=== PATIENT | female | born 1990 | race Caucasian/White ===

== ENCOUNTER 2016-08-25 01:37 | Emergency (ER) | payer MEDICAID ==
--- NOTE | 2016-08-25 01:58 | Emergency Department Record ---
History of Present Illness - General Chief Complaint: Fever Stated Complaint: FEVER CONGESTION Time Seen by Provider: 08/25/16 01:54 Source: Patient, Family Mode of Arrival: Ambulatory Limitations: No limitations - History of Present Illness Initial Comments: 26 yo female presents with cough, sore throat, and fever. She is due in October. She is feeling feeling good movement. No fluid leakage. She has six children that have had similar cough, fever, sore throats. Her left ear is painful. No drainage. Non productive cough. No rash. No edema. She had her tonsils removed at age 19. The patient has known elevated blood pressure and is on medication. OB is through [facility]. MD Complaint: Fever, Other (cough and sore throat) Onset/Timin -: Days(s) Context: Sick contacts Associated Symptoms: Cough, Nasal congestion, Sore throat Treatments Prior to Arrival: None - Related Data Home Medications Medication Instructions Recorded Confirmed Last Taken Labetalol HCl 200 mg PO BID 08/25/16 08/25/16 08/24/16 Ondansetron [Ondansetron Odt] 8 mg PO ASDIR 08/25/16 08/25/16 08/24/16 Pnv with Ca,No.72/Iron/FA 1 tab PO DAILY 08/25/16 08/25/16 08/24/16 [ Plus Tablet] Previous Rx's Medication Instructions Recorded Amoxicillin [Amoxil] 500 mg PO TID #30 tab 08/25/16 Allergies Allergy/AdvReac Type Severity Reaction Status Date / Time No Known Drug Allergies Allergy Verified 08/25/16 01:47 Travel Screening - Travel/Exposure Within Last 30 Days Have you traveled within the last 30 days?: No - Travel/Exposure Within Last Year Have you traveled outside the [place] in the last year?: No - Additonal Travel Details Have you been exposed to anyone with a communicable illness?: No - Travel Symptoms Symptom Screening: None Review of Systems Constitutional: Reports: Fever. Denies: Chills, Weakness Eyes: Denies: Eye discharge, Eye pain, Photophobia ENT: Reports: Congestion, Ear pain, Throat pain Respiratory: Reports: Cough. Denies: Hemoptysis, Stridor, Wheezes Cardiovascular: Denies: Chest pain, Palpitations, Syncope Endocrine: Denies: Fatigue Gastrointestinal: Denies: Abdominal pain, Diarrhea, Nausea, Vomiting Genitourinary: Denies: Dysuria, Urgency Musculoskeletal: Denies: Arthralgia, Back pain, Myalgia Skin: Denies: Bruising, Change in color, Rash Neurological: Denies: Confusion, Headache Psychiatric: Denies: Anxiety Hematological/Lymphatic: Denies: Blood Clots, Easy bleeding, Easy bruising, Swollen glands Past Medical History - SOCIAL HISTORY Smoking Status: Never smoker Alcohol Use: None Drug Use: None - RESPIRATORY Hx Respiratory Disorders: No - CARDIOVASCULAR Hx Cardio Disorders: Yes Hx Hypertension: Yes - NEURO Hx Neuro Disorders: No - GI Hx GI Disorders: No - Hx Genitourinary Disorders: No - ENDOCRINE Hx Endocrine Disorders: No - MUSCULOSKELETAL Hx Musculoskeletal Disorders: No - PSYCH Hx Psych Problems: No - HEMATOLOGY/ONCOLOGY Hx Hematology/Oncology Disorders: No Family Medical History Any Significant Family History?: No Physical Exam - General General Appearance: Alert, Oriented x3, Cooperative, No acute distress Limitations: No limitations - Head Head exam: Normal inspection - Eye Eye exam: Normal appearance. negative: Conjunctival injection, Periorbital swelling, Scleral icterus - ENT ENT exam: Mucous membranes moist, Normal orophraynx (s/p T and A). negative: Mucous membranes dry, TM's normal bilaterally (Left TM with retraction and erythema, no perf or pus, right is normal) Ear exam: Normal external inspection. negative: External canal tenderness Nasal Exam: Discharge Mouth exam: Normal external inspection, Tongue normal. negative: Drooling, Muffled voice Teeth exam: Normal inspection. negative: Dental caries Throat exam: Normal inspection. negative: Tonsillar erythema, Tonsillomegaly, Tonsillar exudate, R peritonsillar mass, L peritonsillar mass - Neck Neck exam: Normal inspection, Full ROM. negative: Lymphadenopathy, Tenderness - Respiratory Respiratory exam: Normal lung sounds bilaterally. negative: Respiratory distress, Rhonchi, Stridor, Wheezes - Cardiovascular Cardiovascular Exam: Regular rate, Normal rhythm, Normal heart sounds Peripheral Pulses: 2+: Radial (R), Radial (L) - GI/Abdominal GI/Abdominal exam: Soft. negative: Tenderness - Rectal Rectal exam: Deferred - exam: Deferred - Extremities Extremities exam: Normal inspection, Full ROM, Normal capillary refill. negative: Pedal edema, Tenderness - Back Back exam: Reports: Normal inspection, Full ROM. Denies: Muscle spasm, Rash noted, Tenderness - Neurological Neurological exam: Alert, Normal gait, Oriented X3. negative: Altered - Psychiatric Psychiatric exam: Normal affect, Normal mood. negative: Agitated, Anxious - Skin Skin exam: Dry, Intact, Normal color, Warm. negative: Erythema Course Vital Signs 08/25/16 01:46 Temperature 98.1 F Pulse Rate 102 H Respiratory 18 Rate Blood Pressure 152/95 Pulse Ox 96 - Reevaluation(s) Reevaluation #1: BP elevated. UA ordered. 08/25/16 01:57 08/25/16 02:18 Reevaluation #2: Influenza is negative Trace protein in the UA 08/25/16 02:21 Reevaluation #3: The strep and influenza are negative The patient reports tonights blood pressure is the same and typical for her at her OB appointments. Her doctor has been monitoring her BP closely and her BP medications. She had HTN of during all her prior pregnancies. She was instructed to call her OB tomorrow to discuss her BP and her medication. 08/25/16 02:27 Disposition Disposition: Discharge Clinical Impression: Otitis media Qualifiers: Otitis media type: unspecified Laterality: left Chronicity: unspecified Qualified Code(s): H66.92 - Otitis media, unspecified, left ear Disposition: Home, Self-Care Condition: (1) Good Instructions: Otitis Media (ED) Additional Instructions: Call your OB tomorrow to discuss your blood pressure and schedule a recheck tomorrow Amoxicillin 3 times daily for your left ear infection Return if worse or any new concerns Prescriptions: Amoxicillin [Amoxil] 500 mg PO TID #30 tab Forms: Patient Portal Access Time of Disposition: 02:29
[2016-08-25 02:15] LABS: URINE APPEARANCE CLEAR; URINE BILIRUBIN NEGATIVE (NEGATIVE); URINE BLOOD SMALL (NEGATIVE); URINE COLOR YELLOW; URINE GLUCOSE (UA) NEGATIVE (NEGATIVE); URINE KETONE NEGATIVE (NEGATIVE); URINE LEUKOCYTE ESTERASE SMALL (NEGATIVE); URINE NITRITE NEGATIVE (NEGATIVE); URINE PROTEIN TRACE (NEGATIVE); URINE UROBILINOGEN 0.2 E.U./dL (0.20 - 1.00)
[2016-08-25 02:20] LABS: STREP A SCREEN NEGATIVE (NEGATIVE)
[2016-08-25 02:25] LABS: URINE BACTERIA FEW; URINE MUCUS LIGHT; URINE RBC 0 - 2 (NONE SEEN)
[2016-08-25 02:26] LABS: INFLUENZA A NEGATIVE (NEGATIVE); INFLUENZA B NEGATIVE (NEGATIVE)
[2016-08-25] MEDS ORDERED: AMOXICILLIN 500 MG TABLET PO ONE (02:29)
== END 2016-08-25 03:01 | disposition home or self-care (01) ==
LOC: ER 01:37
DX: H66.92 Otitis media, unspecified, left ear (principal); I10 Essential (primary) hypertension; Z33.1 Pregnant state, incidental
CPT/HCPCS: 81001; 87400; 87880; 99283

== ENCOUNTER 2016-12-26 03:59 | Emergency (ER) | payer MEDICAID ==
[2016-12-26] MEDS ORDERED: DEXAMETHASONE 4 MG/ML 1ML VIAL PO ONE (04:06)
[2016-12-26] MEDS ORDERED: AMOXICILLIN 500MG CAPSULE PO ONE (04:06)
--- NOTE | 2016-12-26 04:12 | Emergency Department Record ---
History of Present Illness - General Chief complaint: ENT Stated complaint: STREP THROAT Time Seen by Provider: 12/26/16 04:05 Source: Patient Mode of Arrival: Ambulatory Limitations: No limitations - History of Present Illness Initial comments: 26 yo female presents with sore throat. She has eight children five of which have tested postive for strep throat. She has developed a sore throat and pain with swallowing. No fevers. No changes in voice. She has had her tonsils removed. She did notice some swollen glands. No NVD. No rash. MD complaint: Sore throat -: Days(s) (2) Location: Throat Quality: Aching Consistency: Constant Improves with: None Worsens with: Eating, Swallowing Associated Symptoms: Sore throat - Related Data Home Medications Medication Instructions Recorded Confirmed Last Taken Labetalol HCl 200 mg PO BID 08/25/16 12/26/16 08/24/16 Pnv,Calcium 72/Iron/Folic Acid 1 tab PO DAILY 08/25/16 12/26/16 08/24/16 [ Plus Tablet] Previous Rx's Medication Instructions Recorded Amoxicillin 500 mg PO TID #30 capsule 12/26/16 Allergies Allergy/AdvReac Type Severity Reaction Status Date / Time No Known Drug Allergies Allergy Verified 08/25/16 01:47 Review of Systems Constitutional: Denies: Chills, Fever, Malaise, Weakness Eyes: Denies: Eye discharge ENT: Reports: Throat pain. Denies: Congestion Respiratory: Denies: Cough, Dyspnea, Hemoptysis, Stridor, Wheezes Cardiovascular: Denies: Chest pain, Palpitations, Syncope Endocrine: Denies: Fatigue Gastrointestinal: Denies: Abdominal pain, Diarrhea, Nausea, Vomiting Genitourinary: Denies: Dysuria, Urgency Musculoskeletal: Denies: Arthralgia, Back pain, Myalgia, Neck pain Skin: Denies: Bruising, Change in color, Rash Neurological: Denies: Headache Psychiatric: Denies: Anxiety Hematological/Lymphatic: Denies: Blood Clots, Easy bleeding, Easy bruising, Swollen glands Past Medical History - SOCIAL HISTORY Smoking Status: Never smoker Drug Use: None - RESPIRATORY Hx Respiratory Disorders: No - CARDIOVASCULAR Hx Cardio Disorders: Yes Hx Hypertension: Yes - NEURO Hx Neuro Disorders: No - GI Hx GI Disorders: No - Hx Genitourinary Disorders: No - ENDOCRINE Hx Endocrine Disorders: No - MUSCULOSKELETAL Hx Musculoskeletal Disorders: No - PSYCH Hx Psych Problems: No - HEMATOLOGY/ONCOLOGY Hx Hematology/Oncology Disorders: No Physical Exam - General General Appearance: Alert, Oriented x3, Cooperative, No acute distress Limitations: No limitations - Head Head exam: Normal inspection - Eye Eye exam: Normal appearance, PERRL. negative: Conjunctival injection, Periorbital swelling - ENT ENT exam: Mucous membranes moist, Normal external ear exam, TM's normal bilaterally. negative: Mucous membranes dry, Normal orophraynx Ear exam: Normal external inspection. negative: External canal tenderness Nasal Exam: Normal inspection. negative: Discharge, Sinus tenderness Mouth exam: Normal external inspection, Tongue normal Teeth exam: Normal inspection. negative: Dental caries Throat exam: Tonsillar erythema. negative: Tonsillomegaly, Tonsillar exudate, R peritonsillar mass, L peritonsillar mass - Neck Neck exam: Normal inspection, Full ROM, Lymphadenopathy (few small anterior LN, no posterior). negative: Tenderness - Respiratory Respiratory exam: Normal lung sounds bilaterally. negative: Respiratory distress, Rhonchi, Stridor, Wheezes - Cardiovascular Cardiovascular Exam: Regular rate, Normal rhythm, Normal heart sounds - Rectal Rectal exam: Deferred - exam: Deferred - Extremities Extremities exam: Normal inspection, Full ROM, Normal capillary refill. negative: Tenderness - Back Back exam: Reports: Normal inspection, Full ROM. Denies: Muscle spasm, Rash noted, Tenderness - Neurological Neurological exam: Alert, Normal gait, Oriented X3 - Psychiatric Psychiatric exam: Normal affect, Normal mood. negative: Agitated, Anxious - Skin Skin exam: Dry, Intact, Normal color, Warm Course - Reevaluation(s) Reevaluation #1: Well appearing, clear voice. Given the symptoms and number of sick contacts she will be treated 12/26/16 04:11 Disposition Disposition: Discharge Clinical Impression: Pharyngitis Qualifiers: Pharyngitis/tonsillitis etiology: unspecified etiology Qualified Code(s): J02.9 - Acute pharyngitis, unspecified Disposition: Home, Self-Care Condition: (1) Good Instructions: Pharyngitis (ED) Additional Instructions: Stay well hydrated Follow up with your doctor in the next week for a recheck Return to the ER if worse, vomiting, voice changes Prescriptions: Amoxicillin 500 mg PO TID #30 capsule Forms: Patient Portal Access Time of Disposition: 04:10
== END 2016-12-26 04:20 | disposition home or self-care (01) ==
LOC: ER 03:59
DX: J02.9 Acute pharyngitis, unspecified (principal)
CPT/HCPCS: 99282